=== PATIENT | male | born 1945 | race Caucasian/White ===

== ENCOUNTER 2022-07-07 07:47 | Day surgery (SDC) | payer MEDICARE, SELFPAY ==
[2022-07-02 09:44] VITALS: BMI 26.8
--- NOTE | 2022-07-06 09:59 | HO.ANESPROP2 ---
Documented by User: Angelina Fisher NP 07/06/22 10:04 HPI - Anesthesia Eval Consult details Narrative: 77yo M for Bilateral Lateral Eye Muscle Rectus Resection PCP cleared [facility] Past Medical History Medical History Arthritis CAD (coronary artery disease) Elevated cholesterol Frequent headaches GERD (gastroesophageal reflux disease) HTN (hypertension) Myocardial infarction On beta reagan at home Surgical History Surgical History History of heart artery stent History of surgery on right wrist History of tonsillectomy Hx of sinus surgery Social History Social History Are you a primary home health care social worker to a significant other at home: No Do you presently have visiting nurse or other home services: No Patient Tobacco Use Status: Never used Tobacco Use of substances other than those prescribed or required for medical reasons: No Have you been hit, kicked, punched, or otherwise hurt by someone within the past year? If so, by whom?: No Are you DNR?: No Advance Directives: No Advance Directives Information Provided: Yes Advance Directives on File: No Recently lost weight without trying: No Eating poorly because of decreased appetite: No Nutrition Risks: No Nutritional Risk Meds Allergies Allergy/AdvReac Type Severity Reaction Status Date / Time heparin Allergy Rash Verified 07/02/22 09:43 losartan Allergy lip Verified 07/01/22 16:23 swelling lisinopril AdvReac Cough Verified 07/02/22 09:43 [id number] Reductase AdvReac Muscle Verified 07/01/22 16:23 Inhibitor cramps Home Medications Medication Instructions Recorded Confirmed Last Taken Type acetaminophen 500 mg capsule 500 mg PO Q6H PRN Pain 07/01/22 07/01/22 Unknown History amlodipine 10 mg tablet 10 mg PO DAILY 07/01/22 07/01/22 07/07/22 History aspirin 81 mg tablet,delayed 81 mg PO DAILY 07/01/22 07/01/22 07/02/22 History release cholecalciferol (vitamin D3) 50 50 mcg PO DAILY 07/01/22 07/01/22 Unknown History mcg (2,000 unit) tablet (Vitamin D3) metoprolol succinate 100 mg 100 mg PO DAILY 07/01/22 07/01/2207/07/22 History tablet,extended release 24 hr multivitamin 1 tab PO DAILY 07/01/22 07/01/22 Unknown History nitroglycerin 0.4 mg sublingual 0.4 mg sublingual Q5M PRN Chest 07/01/22 07/01/22 Unknown History tablet Pain omega-3 fatty acids-fish oil 684 1 cap PO DAILY 07/01/22 07/01/22 Unknown History mg-1,200 mg capsule,delayed release Exam Exam Date and Time: July 06, 2022 0959 Height,Weight and Vital Signs: Height 5 ft 7.5 in Weight 78.925 kg Narrative Narrative: EKG 06/2022 NSR Assessment and Plan Assessment Anesthesia Assessment: Chart Reviewed Documented by User: Urmila Balbuena MD 07/07/22 11:56 [facility] Past Medical History Medical History Arthritis CAD (coronary artery disease) Elevated cholesterol Frequent headaches GERD (gastroesophageal reflux disease) HTN (hypertension) Myocardial infarction On beta reagan at home Surgical History Surgical History History of heart artery stent History of surgery on right wrist History of tonsillectomy Hx of sinus surgery History of Problems with Anesthesia: No Social History Social History Are you a primary home health care social worker to a significant other at home: No Do you presently have visiting nurse or other home services: No Patient Tobacco Use Status: Never used Tobacco Use of substances other than those prescribed or required for medical reasons: No Have you been hit, kicked, punched, or otherwise hurt by someone within the past year? If so, by whom?: No Are you DNR?: No Advance Directives: No Advance Directives Information Provided: Yes Advance Directives on File: No Recently lost weight without trying: No Eating poorly because of decreased appetite: No Nutrition Risks: No Nutritional Risk Meds Allergies Allergy/AdvReac Type Severity Reaction Status Date / Time heparin Allergy Rash Verified 07/02/22 09:43 losartan Allergy lip Verified 07/01/22 16:23 swelling lisinopril AdvReac Cough Verified 07/02/22 09:43 [id number] Reductase AdvReac Muscle Verified 07/01/22 16:23 Inhibitor cramps Home Medications Medication Instructions Recorded Confirmed Last Taken Type acetaminophen 500 mg capsule 500 mg PO Q6H PRN Pain 07/01/22 07/01/22 Unknown History amlodipine 10 mg tablet 10 mg PO DAILY 07/01/22 07/01/22 07/07/22 History aspirin 81 mg tablet,delayed 81 mg PO DAILY 07/01/22 07/01/22 07/02/22 History release cholecalciferol (vitamin D3) 50 50 mcg PO DAILY 07/01/22 07/01/22 Unknown History mcg (2,000 unit) tablet (Vitamin D3) metoprolol succinate 100 mg 100 mg PO DAILY 07/01/22 07/01/22 07/07/22 History tablet,extended release 24 hr multivitamin 1 tab PO DAILY 07/01/22 07/01/22 Unknown History nitroglycerin 0.4 mg sublingual 0.4 mg sublingual Q5M PRN Chest 07/01/22 07/01/22 Unknown History tablet Pain omega-3 fatty acids-fish oil 684 1 cap PO DAILY 07/01/22 07/01/22 Unknown History mg-1,200 mg capsule,delayed release Exam Airway Mallampati Class: III TM Dist: >3cm Neck ROM: Full Loose/Missing/Broken Teeth: No Heart: RRR Lungs: CTA Assessment and Plan Assessment Anesthesia Assessment: Anesthesia Plan Discussed Final Anesthetic Review History of Problems with Anesthesia: No NPO: Yes ASA Class: II Final Preanesthetic Review: Meds/Allgs Chart Reviewed, Consent Obtained/Reviewed and Anes Risks/Benef Reviewed Patient Risk: Low Procedure Risk: Low Anesthetic Plan Anesthetic Plan: GA Disposition: Standard PACU
[2022-07-07] VITALS (8 sets, daily range): BP systolic 129–150; BP diastolic 64–82; PULSE 60–73; RESP 14–20; TEMP 36.2–36.3; O2SAT 92–97; BMI 26.6
--- NOTE | 2022-07-07 10:28 | PC.NURSE ---
pt @ 10:16, vasovagal with iv start. eyechair flat bp75/39 hr 52. LR w.o. with improvement , cvool cloth, smelling alcohol wipe. bp improved 95/40 then 115/55 asymptomatic hr 59 @ 1030
[2022-07-07] MEDS: Lactated Ringers 1,000 ML 50 ML IVCONT (10:33)
--- NOTE | 2022-07-21 08:29 | HO.OPHTHAL ---
Ophthalmology Operative Note Date of Service: 07/21/22 Narrative: diagnosis exotropia. Procedure bilateral lateral rectus recessions of [address] Dixon. Anesthesia general. Complications none. The patient is brought to the operating room placed under general anesthesia. The patient's eyes were prepped and draped in the usual sterile ophthalmic fashion. A lid speculum was placed in the right eye and an incision was made at bare sclera in the inferotemporal fornix. The lateral rectus muscle was hooked and secured with a double-armed Vicryl suture. The muscle was then disinserted the globe and reattached to a position 7 mm behind the original insertion. Conjunctiva was closed with interrupted Vicryl sutures. An identical procedure was then performed on the left eye. The patient was then awoken from general anesthesia and discharged to postoperative recovery in good condition.
== END 2022-07-07 14:05 | disposition home or self-care (01) ==
PROVIDERS: PCP Family Medicine; Visit Provider Ophthalmology
PROC: (CPT 67311; principal; 2022-07-07 09:40)
DX: H53.2 Diplopia (principal); H53.8 Other visual disturbances; K21.9 Gastro-esophageal reflux disease without esophagitis; Z79.82 Long term (current) use of aspirin; Z79.899 Other long term (current) drug therapy
CPT/HCPCS: 67311; J0131; J1100; J2405; J3010